=== PATIENT | female | born 1955 | race Caucasian/White ===

== ENCOUNTER → 2022-08-30 | Day surgery (SDC) | payer MEDICARE, BC ==
[~2022-08-30] MED LIST: Lactated Ringers 1,000 ML IV SCH; Midazolam 1 MG/ML 2 ML SDV ONE; Propofol 200 MG/20 ML SDV ONE; fentaNYL 100 MCG/2 ML SDV ONE
== END ==
LOC: JP.SDS 06:00
PROVIDERS: ATTEND Family Medicine
DX: Z12.11 Encounter for screening for malignant neoplasm of colon (principal); D12.2 Benign neoplasm of ascending colon; Z88.8 Allergy status to other drugs, medicaments and biological substances; Z79.899 Other long term (current) drug therapy
CPT/HCPCS: 45380; 88305; J2250; J2704; J3010; J7120